=== PATIENT | female | born 1990 ===

== ENCOUNTER 2017-11-17 18:38 | Outpatient (CLI) | payer MEDICAID ==
[~2017-11-17] VITALS: Ht 165.1 cm; Wt 72.6 kg
[~2017-11-17 18:38] MED LIST: FOLI0.4T56 PO; OMEG-5 PO; PREN1TAB15 PO
[2017-11-17] MEDS ORDERED: CALC-515 PO (19:03)
[2017-11-17] MEDS ORDERED: ACET-1966 PO (19:03)
[2017-11-17 19:04] VITALS: BP 107/57; Ht 165.1 cm; Wt 72.6 kg
[2017-11-17 19:53] LABS: PLATELET COUNT, AUTOMATED 145 K/uL (150-450)
--- NOTE | 2017-11-17 19:53 | History & Physical ---
History of Present Illness Age of Patient: 27 : 3 Para or TPAL: 2001 EDC per LMP: Dec 28, 2017 EDC per U/S: Dec 28, 2018 Estimated Gestational Age: 34.1 Chief Complaint abdominal pain after fall on buttocks History of Present Illness HPI: 27yo at 34.1, BRIANA 12/28/17, who presents for evaluation of abdominal pain after fall at 10am this morning. Patient reports she tripped backward over her dog and fell backward onto her buttocks. She denies intimate partner violence. She reports normal movement, no LOF or PVB. She reports dull pain over her entire abdomen. Pain started immediately, and lasted until about noon. She reports it felt like she had pulled a muscle. She reports that the pain resolved completely, but then returned this evening about 5 and has not resolved. Of note, she reports that she has been followed with weekly NSTs for IUGR, EFW 7 % and stable, repeat sonogram for growth in 2 weeks scheduled. Also has had bleeding throughout her , thought to be likely abruption as no other source of bleeding identified. She reports she is stable from that standpoint. She states she has had contractions with this , no labor, no medications. History Group B Strep Screen: Unknown Obstetrical History: FT x 2, pt reports contractions with both pregnancies but term deliveries first trimester spAB Past Medical History: mild intermittent asthma Allergies: Coded Allergies: No Known Drug Allergies (Unverified , 11/17/17) Social History: , denies intimate partner violence, has one step child. Med Rec Home Meds Reported Medications Acetaminophen (TYLENOL) 325 Mg Tablet, 325 MG PO, TAB 11/17/17 Calcium Carbonate (TUMS) 200 Mg Tab.chew, 200 MG PO, TAB.CHEW 11/17/17 Vit #108/Iron/Fa ( ONE TABLET) 1 Each Tablet, 1 EACH PO DAILY 07/07/17 Discontinued Reported Medications [place]-3/Dha/Epa/Fish Oil (Fish Oil 500 mg Softgel) 60 Mg-90 Mg-500 Mg Capsule, 500 MG PO DAILY 07/07/17 Review of Systems Constitutional: No Fever, No Weight Loss, No Weight Gain, No Chills, No Night Sweats, No Other Eyes: No Vision Change, No Loss of Vision, No Photophobia, No Other ENT: No Hearing Loss, No Sinus Congestion, No Sore Throat, No Ear Ache, No Tinnitus, No Other Cardiovascular: No Chest Pain, No Palpitations, No Orthostatic Hypotension, No Other Respiratory: No Shortness of Breath, No Cough, No Wheezing, No Other Gastrointestinal: Abdominal Pain Genitourinary: No Dysuria, No Hematuria, No Urinary Incontinence, No Other Musculoskeletal: No Pain, No Sprain, No Strain, No Impaired Mobility, No Other Psychiatric: No Depression, No Anxiety, No Other Exam General Exam Vital Signs Vital Signs Date Time Temp Pulse Resp B/P (MAP) Pulse Ox O2 Delivery O2 Flow Rate FiO2 11/17/17 19:04 98.2 102 18 107/57 (74) 95 Room Air General Apperance: Alert/Awake/No Acute Distress Neuro: No Gross deficits Cardiovascular: Regular Rate and Rhythm Respiratory: Clear to Auscultation Abdomen: Gravid - Non-Tender (soft, non-distended, general abdominal tenderness , not fundal tenderness) : Normal Extremities: No Cyanosis,Clubbing or Edema Integumentary: Skin Intact without Lesions or Rash Psychological: Alert & Oriented X3, Appropriate Mood & Affect Uterine Contractions(Q min): 0 Uterine Contraction Strength: Mild UC Resting Tone: Soft Fetus Feeling Movement?: Yes Heart Tones: 120 Heart Tone Variabilty: Moderate FHT Accelerations: 15X15 FHT Decelerations: None FHT Category: I Medical Decision Making Pre-Admit Course Medical Record Review: No (not available) VTE Prophylasis: Adult Deep Vein Thrombosis/Pulmonary: No Pharmacological Contraindicati: Pt at Low Risk for VTE Mechanical Contraindications: Pt at Low Risk for VTE Assessment and Plan Problems: (1) Abdominal pain affecting , antepartum Status: Acute Assessment & Plan: 27yo at 34.1 with known IUGR at 7%ile, and known suspected chronic abruption, now with abdominal pain s/p fall. testing reassuring on NST, no contractile activity, no uterine tenderness. However, recommend ultrasound to evaluate placenta, PETRA, as well as CBC, fibrinogen , and K-B. Rationale for additional testing discussed with patient and all questions answered. CEFM/TOCO monitoring for now. (2) Status post fall KAM KIM MD Nov 17, 2017 19:52
--- NOTE | 2017-11-17 21:19 | RADIOLOGY IMAGING REPORT ---
FACILITY: [facility] - [place] PATIENT NAME: Rand Story : 1990 MR: [id number] V: [id number] EXAM DATE: ORDERING PHYSICIAN: KAM KIM TECHNOLOGIST: Location: [facility] Patient: Rand Story : 1990 Visit/Account:[id number] Date of Sevice: 11/17/2017 OB LIMITED HISTORY: Patient fell on her back. Pain. COMPARISON STUDIES: None. FINDINGS: Intrauterine gestations: One. presentation: Cephalic. heart rate: Regular at 142-149 bpm. Amniotic fluid index: 18.4 cm. Largest amniotic fluid pocket 6.2 cm. Placenta: Anterior without previa. Placental cord insertion is normal. The campaign management specialist was worried ab out a small hypoechoic area visible only in the transverse plane deep to the right side of the placen ta (images 26 through 29). It measures 1.3 x 0.8 cm. The appearance favors that it is a portion of th e uterine wall. A tiny chronic placental abruption is felt to be much less likely. No ultrasound evid ence for acute abruption. Uterus: Gravid, otherwise normal. Maternal adnexa: Unremarkable. Cervix: Not visible due to shadowing from the head. Gestational Parameters: BPD: 8.7 cm 35 weeks/ 1 days HC: 32.4 cm 36 weeks/ 5 days AC: 28.2 cm 32 weeks/ 2 days FL: 6.0 cm 31 weeks/ 1 days Average ultrasound age (AUA): 33 weeks 6 days Estimated gestational age by LMP of 03/23/2017: 34 weeks 1 days, corresponding to BRIANA 12/28/2017. Estimated weight (EFW): 1994 grams +/- 291 grams EFW based on LMP: 9 th percentile Anatomic Survey: Dedicated anatomic survey was performed due to the indication of trauma. Visible intracranial structu res are normal. IMPRESSION: 1. Single live intrauterine gestation; estimated ultrasound age 33 weeks 6 days, corresponding to BRIANA 12/30/2017, 2 days BRIANA based on LMP. 2. Estimated weight is at the 9th percentile based on LMP. 3. No ultrasound evidence for placental abruption. These findings were discussed by phone with KAM KIM on 11/17/2017 9:14 PM. Report Dictated By: Denita Doll at 11/17/2017 8:50 PM Report E-Signed By: Denita Doll at 11/17/2017 9:16 PM [id number]
[2017-11-17] MEDS ORDERED: CYCLOBENZAPRINE HCL 10 MG TH PO ONE (21:35)
--- NOTE | 2017-11-17 21:40 | OB/GYN Progress Note ---
OB Subjective Progress Notes Subjective Patient reports feels pain improved with ice pack to low back and low abdomen. No vaginal bleeding, no contractions. Good movement. GI: NEG Nausea, NEG Vomiting, NEG Flatus, NEG Bowel Movement : Voiding Well Pain: Mild, Not Requiring Pain Meds Eyes: No Visual Disturbances OB Objective Physical Exam Vital Signs Date Time Temp Pulse Resp B/P (MAP) Pulse Ox O2 Delivery O2 Flow Rate FiO2 11/17/17 19:04 98.2 102 18 107/57 (74) 95 Room Air General Appearance: Alert/Awake/No Acute Distress Neurological: No Gross deficits Eyes: Normal Extraocular Movement & Vison Respiratory: Clear to Auscultation Abdomen: Soft, Non-Tender, Non-Distended (fundus non-tender, some diffuse tenderness) Extremities: No Cyanosis,Clubbing or Edema Integumentary: Skin Intact without Lesions or Rash Psychological: Alert & Oriented X3, Appropriate Mood & Affect Result Diagram: 11/17/17 1940 fibrinogen 325 Imaging OB ultrasound: EFW 1994g, 9%ile PETRA normal at 18.4 anterior fundal placenta, no e/o acute abruption Assessment and Plan Problems: (1) Abdominal pain affecting , antepartum Status: Acute Assessment & Plan: 27yo at 34.1 with known IUGR at 7%ile, and known suspected chronic abruption, now with abdominal pain s/p fall. testing remains reassuring on NST, no contractile activity, no uterine tenderness. CBC overall good, platelets low but stable at 145 (152 12/12). Fibrinogen 325. Ultrasound shows stable growth, reassuring PETRA 18, no e/o acute abruption. Pain improved with ice packs to area. Will allow discharge home with trial of cyclobenzaprine, as mechanism of injury was falling backward with an acute pulling sensation. Continue intermittent ice to area. Strict instructions to patient to call us with contractions or any vaginal bleeding or decreased movement. (2) Status post fall Status: Acute KAM KIM MD Nov 17, 2017 21:40
[2017-11-17] MEDS ORDERED: CYCL10TA29 PO (21:42)
--- NOTE | 2017-11-17 21:43 | OB/GYN Discharge Summary ---
Discharge Summary Reason for Hosp/Final Diag: (1) Abdominal pain affecting , antepartum Status: Acute Hospital Course & Plan: 27yo at 34.1 with known IUGR at 7%ile, and known suspected chronic abruption, now with abdominal pain s/p fall. testing remains reassuring on NST, no contractile activity, no uterine tenderness. CBC overall good, platelets low but stable at 145 (152 12/12). Fibrinogen 325. Ultrasound shows stable growth, reassuring PETRA 18, no e/ o acute abruption. Pain improved with ice packs to area. Will allow discharge home with trial of cyclobenzaprine, as mechanism of injury was falling backward with an acute pulling sensation. Continue intermittent ice to area. Strict instructions to patient to call us with contractions or any vaginal bleeding or decreased movement. (2) Status post fall Status: Acute Lates Vital Signs Vital Signs Date Time Temp Pulse Resp B/P (MAP) Pulse Ox O2 Delivery O2 Flow Rate FiO2 11/17/17 19:04 98.2 102 18 107/57 (74) 95 Room Air Weight (Pounds): 160 Result Diagram: 11/17/171939 Condition: Improved Discharge: Home Home Meds Active Scripts Cyclobenzaprine Hcl (CYCLOBENZAPRINE HCL) 10 Mg Tablet, 1 EACH PO Q8H Y for MUSCLE SPASMS MDD 30 for 5 Days, #15 TAB Prov:KAM KIM MD 11/17/17 Reported Medications Acetaminophen (TYLENOL) 325 Mg Tablet, 325 MG PO, TAB 11/17/17 Calcium Carbonate (TUMS) 200 Mg Tab.chew, 200 MG PO, TAB.CHEW 11/17/17 Vit #108/Iron/Fa ( ONE TABLET) 1 Each Tablet, 1 EACH PO DAILY 07/07/17 Discontinued Reported Medications [place]-3/Dha/Epa/Fish Oil (Fish Oil 500 mg Softgel) 60 Mg-90 Mg-500 Mg Capsule, 500 MG PO DAILY 07/07/17 [facility]: [facility] [phone] Follow up in: 3-4 days Discharge Diet: As Tolerates Discharge Activity: As Tolerates KAM KIM MD Nov 17, 2017 21:43
== END 2017-11-17 22:00 | disposition home or self-care (01) ==
LOC: OB 18:38 → UNDOADMOB 18:38 → L&D 18:38 → OB 18:38 → UNDODISOB 21:42 → L&D 22:00 → EDSTATUS 11-21 15:44
PROVIDERS: ATTEND Obstetrics & Gynecology
DX: O26.893 Other specified pregnancy related conditions, third trimester (principal); Z3A.34 34 weeks gestation of pregnancy; W01.0XXA Fall on same level from slipping, tripping and stumbling without subsequent striking against object, initial encounter
CPT/HCPCS: 36415; 76815; 85025; 85384; 85460; 86850; 86900; 86901; G0463; 99213; G0378; G0379

== ENCOUNTER 2017-12-01 22:25 | Inpatient (IN) | payer MEDICAID ==
[~2017-12-01] VITALS: Ht 165.1 cm; Wt 77.1 kg
[~2017-12-01 22:25] MED LIST changes: +ACET-1966 PO; +CALC-515 PO; +CYCL10TA29 PO
[2018-01-05] MEDS ORDERED: OXYTOCIN 30 UNIT/D5LR 500 ML 500 ML ONE ×2 (05:53→14:20)
[2018-01-05] MEDS ORDERED: LR(*) 1000 ML BAG 1,000 ML ONE (05:53)
[2018-01-05] MEDS ORDERED: ceFAZolin(*) 2GM/D5W 50ML 50 ML IVPB PRN (06:24)
[2018-01-05] MEDS ORDERED: FAMOTIDINE(*) 20MG/50ML PREMIX 50 ML IVPB PRN (06:24)
[2018-01-05] MEDS ORDERED: OXYTOCIN 30 UNIT/D5LR 500 ML 500 ML IV PRN ×3 (06:24→16:34)
[2018-01-05] MEDS ORDERED: ACETAMINOPHEN 500 MG TAB PO PRN (06:25)
[2018-01-05] MEDS ORDERED: cefOXitin/DEX(*) 2GM/50ML PREM 50 ML IVPB PRN (06:25)
[2018-01-05] MEDS ORDERED: METOCLOPRAMIDE 10 MG/2 ML SDV IVP PRN (06:25)
[2018-01-05] MEDS ORDERED: LIDOCAINE 1% LOCAL 300 MG/30ML INJ PRN (06:25)
[2018-01-05] MEDS ORDERED: ONDANSETRON 4 MG/2 ML VIAL IVP PRN (06:25)
[2018-01-05] MEDS ORDERED: TERBUTALINE SULF 1 MG/ML VIAL SUBQ PRN (06:25)
[2018-01-05] MEDS ORDERED: MISOPROSTOL 25 MCG CAP PV PRN (06:25)
[2018-01-05 06:30] VITALS: BP 111/69; Ht 165.1 cm; Wt 77.1 kg
[2018-01-05] MEDS ORDERED: ALB6.7R INH (06:40)
[2018-01-05 06:43] LABS: PLATELET COUNT, AUTOMATED 157 K/uL (150-450)
[2018-01-05] MEDS: LR(*) 1000 ML BAG 1,000 ML IV PRN ×3 (06:45→13:00)
[2018-01-05] MEDS ORDERED: OXYMETAZOLINE SPRAY 15 ML BTL ENA PRN (08:40)
[2018-01-05] MEDS ORDERED: ALBUTEROL SULFATE 90 MCG/ACT 8.5 GM HNH INH PRN (08:40)
--- NOTE | 2018-01-05 08:48 | History & Physical ---
History of Present Illness Age of Patient: 24 : 4 Para or TPAL: 2 EDC per LMP: Dec 28, 2017 EDC per U/S: Dec 30, 2017 Estimated Gestational Age: 41.1 Chief Complaint Induction of labor History of Present Illness Pt is a 27 y/o @ 41-1/7 weeks gestation by lmp c/w early sonogram who presents to L&D for a scheduled IOL. Pt reports good movement. No vaginal bleeding. No loss of amniotic fluid. No headache, RUQ, or visual changes. History Patient's Blood Type: O Positive Rubella Status: Immune Group B Strep Screen: Negative Obstetrical History: X1 SAB X 1 Past Medical History: Asthma: Inhaler (albuterol)prn Allergies: Coded Allergies: No Known Drug Allergies (Unverified , 11/17/17) Social History: , denies intimate partner violence, has one step child. Med Rec Home Meds Reported Medications Albuterol Sulfate (PROVENTIL HFA) 6.7 Gm Inh, 2 PUFF INH Q4-6H, INH 01/05/18 Calcium Carbonate (TUMS) 200 Mg Tab.chew, 200 MG PO, TAB.CHEW 11/17/17 Vit #108/Iron/Fa ( ONE TABLET) 1 Each Tablet, 1 EACH PO DAILY 07/07/17 Discontinued Reported Medications Acetaminophen (TYLENOL) 325 Mg Tablet, 325 MG PO, TAB 11/17/17 Review of Systems All Systems Reviewed/Normal: Yes, Except as Noted Constitutional: No Fever, No Weight Loss, No Weight Gain, No Chills, No Night Sweats, No Other Neurological: No Syncope, No Confusion, No Weakness, No Dizziness, No Slurred Speech, No Other Eyes: No Vision Change, No Loss of Vision, No Photophobia, No Other ENT: No Hearing Loss, No Sinus Congestion, No Sore Throat, No Ear Ache, No Tinnitus, No Other Cardiovascular: No Chest Pain, No Palpitations, No Orthostatic Hypotension, No Other Respiratory: No Shortness of Breath, No Cough, No Wheezing, No Other Gastrointestinal: No Nausea, No Vomiting, No Diarrhea, No Dysphagia, No Constipation, No Early Satiety, No Hematemesis, No Hematochezia, No Melena, No Abdominal Pain, No Other Genitourinary: No Dysuria, No Hematuria, No Urinary Incontinence, No Other Musculoskeletal: No Pain, No Sprain, No Strain, No Impaired Mobility, No Other Psychiatric: No Depression, No Anxiety, No Other Exam General Exam Vital Signs Vital Signs Date Time Temp Pulse Resp B/P (MAP) Pulse Ox O2 Delivery O2 Flow Rate FiO2 01/05/18 06:30 98.3 87 18 111/69 (83) 94 Room Air General Apperance: Alert/Awake/No Acute Distress Neuro: No Gross deficits Eyes: PERRLA ENT: Normal Cardiovascular: Regular Rate and Rhythm Respiratory: No Respiratory Distress, Clear to Auscultation Abdomen: Soft, Non-Tender, Non-Distended, Gravid - Non-Tender : Normal Musculoskeletal: No Weakness/Pain Psychological: Alert & Oriented X3, Appropriate Mood & Affect Vaginal Discharge/Fluid?: Clear Fluid (with amniotomy) Cervical Dialation: 3 Cervical Effacement (%): 80 Cervical Consistency: Soft Cervical Position: Anterior Station: -2 Presentation: Vertex Uterine Contractions(Q min): 3 Uterine Contraction Strength: Moderate UC Resting Tone: Soft Fetus Feeling Movement?: Yes Estimated Weight(grams): 3000 Heart Tones: 120 Heart Tone Variabilty: Moderate FHT Accelerations: 15X15 FHT Decelerations: None FHT Category: I Medical Decision Making Data Points Result Diagram: 01/05/18 0600 Pre-Admit Course Medical Record Review: Yes VTE Prophylasis: Adult Deep Vein Thrombosis/Pulmonary: No Assessment and 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 S/P amniotomy. Pt declines need for epidural and desires to use IV pain medications. Expect . JOAO BAUER DO Jan 05, 2018 08:48
[2018-01-05] MEDS ORDERED: METHYLERGONOVINE MAL 0.2MG/ML IM PRN (10:05)
[2018-01-05] MEDS: fentaNYL CITR 100 MCG/2 ML AMP IVP PRN ×2 (11:20→12:33)
[2018-01-05] MEDS ORDERED: EPHEDRINE SULFATE/NS/PF 50 MG/10 ML SYRINGE IVP PRN (12:15)
[2018-01-05] MEDS ORDERED: LIDOCAINE/PF 2% 200MG/10ML AMP 200 MG/10 ML AMPUL EPI PRN (12:15)
[2018-01-05] MEDS ORDERED: LIDO/EPI 2% MPF 1:200,000 20ML EPI PRN (12:15)
[2018-01-05] MEDS ORDERED: BUPIVACAINE 0.25% MPF INJ EPI PRN (12:15)
[2018-01-05] MEDS ORDERED: fentaNYL CITR 100 MCG/2 ML AMP IT PRN (12:15)
[2018-01-05] MEDS ORDERED: BUPIVACAINE 0.5% INJ 30ML VIAL EPI PRN (12:15)
[2018-01-05] MEDS ORDERED: FENTANYL/ROPIVACAINE 100 ML BAG EPI PRN (12:15)
[2018-01-05] MEDS ORDERED: EPIDURAL KEYS XX PRN (12:15)
--- NOTE | 2018-01-05 13:45 | Anesthesia OB Pre-Anes Eval ---
History of Present Illness Anesthesia Start Date: Jan 05, 2018 Anesthesia Start Time: 12:35 OB Anesthesia Diagnosis: induction - elective EDC: Dec 28, 2017 : 4 Para: 2 Vital Signs: Vital Signs 01/05/18 06:30 Temp 98.3 Pulse 87 Resp 18 B/P (MAP) 111/69 (83) Pulse Ox 94 O2 Delivery Room Air Pain Ratin Result Diagram: 01/05/18 0600 Height (Inches): 65.00 Weight (Pounds): 170 BMI Calculated: 28.29 Past Medical History Medical History: asthma Surgical History: other Previous Anesthesia: general, epidural Attended Childbirth Classes?: No Hx Anesthesia Reactions: No Hx Family Anesthesia Reaction: No Current Medications: pain medication Home Meds Reported Medications Albuterol Sulfate (PROVENTIL HFA) 6.7 Gm Inh, 2 PUFF INH Q4-6H, INH 01/05/18 Calcium Carbonate (TUMS) 200 Mg Tab.chew, 200 MG PO, TAB.CHEW 11/17/17 Vit #108/Iron/Fa ( ONE TABLET) 1 Each Tablet, 1 EACH PO DAILY 07/07/17 Discontinued Reported Medications Acetaminophen (TYLENOL) 325 Mg Tablet, 325 MG PO, TAB 11/17/17 Allergies: Coded Allergies: No Known Drug Allergies (Unverified , 11/17/17) Anesthesia OB ROS Neurological: No migraines/headaches, No seizures, No neuropathy, No other ENT: Denies Tooth caps, Denies Loose teeth, Denies Chipped teeth, Denies Dentures, Denies Bridges, Denies Retainers, Denies Veneers, Denies Implants, Denies Tongue ring, Denies Other Airway Class: ll Cardiovascular ROS: No edema, No arrhythmia, No other ROS: No Herpes, No STD(s), No Liver Disease, No Renal Disease, No Other Endocrine ROS: No diabetes, No gestational diabetes, No thyroid disorder, No other Musculoskeletal ROS: No low back pain, No low back injury, No scoliosis, No other ASA Classification: 2 Assessment and Plan Anesthesia Plan: CSE Anesthesia Stop Day: Jan 05, 2018 Anesthesia Stop Time: 14:00 SHAKIR LANDRY CRNA Jan 05, 2018 13:45
--- NOTE | 2018-01-05 13:47 | Procedure Note ---
Anesthetic Placement Note Anesthesia Plan: CSE Anesthesia Technique: Patient Sitting Interspace: L 3-4 Local Anesthetic: 1% Lidocaine Amount Local - cc's: 3 Anesthesia Needle: 17g Touhy/Schliff Anesthesia Attempts: 1 Loss of Resistance: Normal Saline Depth of ASHLEE (cm): 5 Epidural Needle Placement: No CSF, No Blood, No Parasthesia Intrathecal Needle: 27 Gauge Pencan Cerebral Spinal Fluid: Yes, Clear Catheter Insertion (cm): 9 Catheter Type: Chand - Spring Wound Epidural Dressing: Tegaderm, Tape Anesthesia Tray: Lot Number ([id number]), Expiration Date (07/19), Reference Number ([id number]) Anesthesia Medications: Intrathecal Dose: mcg Fentanyl (10), mg Spinal Bupivicaine (2.5) Epidural Test Dose: 1.5 Lido/Epi (1:200,000), Dose - mL (3), Time (1250), Negative Epidural Infusion: 0.2% Ropivicaine, With Fentanyl 2mcg/ml, Start Time: (1303) Epidural Pump Setting: Bolus Dose - mL (6), Lockout - Minutes (20), Maintenance Rate - mL/hr (6), Maximum per Hour - mL (24) Complications: None SHAKIR LANDRY CRNA Jan 05, 2018 13:47
[2018-01-05] MEDS ORDERED: ACETAMINOPHEN 325 MG TAB PO PRN (14:00)
[2018-01-05] MEDS ORDERED: LANOLIN OINT 7 GM TUBE TP PRN (14:00)
[2018-01-05] MEDS ORDERED: HYDROCORTISONE 2.5% CR 30GM TB PR PRN (14:00)
[2018-01-05] MEDS ORDERED: MAGNESIUM HYDROXIDE* 30ML UDCP PO PRN (14:00)
[2018-01-05] MEDS ORDERED: BENZOCAINE 20% 60 ML BTL TP PRN (14:00)
[2018-01-05] MEDS ORDERED: GLYCERIN/WITCH HAZEL LEAF 1 PK TP PRN (14:00)
[2018-01-05 14:59] VITALS: BP 102/59
[2018-01-05 15:37] VITALS: BP 111/62
[2018-01-05 16:27] VITALS: BP 111/63
[2018-01-05] MEDS: IBUPROFEN 800 MG TAB PO SCH ×2 (16:43→23:12)
--- NOTE | 2018-01-05 17:25 | OB Delivery Note ---
Delivery Note Vaginal Delivery Type: Spont. Vaginal Delivery Delivery Date: Jan 05, 2018 Delivery Time: 13:41 Estimated Gestational Age(wks): 41.1 Length of Labor Stage I (hrs): 5.5 Length of Labor Stage II (hrs): 0.2 Labor Stage III (minutes): 5 Delivery Anesthesia: Epidural Infant Sex: Male Weight (gms): 3312 (7#4.8oz) [place] Apgars: 1 Minute (9), 5 Minute (9) Estimated Blood Loss: 400 [employer] Estimator in Attendence: JOAO Kruger DO Jan 05, 2018 17:25
--- NOTE | 2018-01-05 17:53 | DELIVERY NOTE ---
DELIVERY DATE: January 05, 2018 SURGEON: Leif Hope DO ANESTHESIA: Epidural. PREOPERATIVE DIAGNOSES 1. A 27-year-old 4 para 2 at 41-1/7 weeks gestation. 2. Induction of labor. POSTOPERATIVE DIAGNOSES 1. A 27-year-old 4 para 2 at 41-1/7 weeks gestation. 2. Induction of labor. 3. Delivered. PROCEDURE Spontaneous vaginal delivery with no laceration repair. FINDINGS Live born male at 1341 hours, Apgars of 9 and 9, weighing 3312 g, 7 pounds 4.8 ounces. Three-vessel cord, intact placenta over an intact perineum. ESTIMATED BLOOD LOSS 400 mL PATHOLOGY None. COMPLICATIONS None known. CONDITION Stable times two. Mother and remained in the LDRP. COUNTS Correct times two for all needles, laps, sponges and instruments. LABOR SUMMARY Patient is a 27-year-old 4, para 2 at 41-1/7 weeks gestation by LMP consistent with an early sonogram. Patient was admitted to Labor and Delivery for induction of labor. She started with a cervix at 3 cm. She was given oxytocin for induction of labor. She underwent amniotomy with clear amniotic fluid. She made slow progress initially with the oxytocin, but eventually got to 5 cm. Did request an epidural for pain control. After epidural patient began to have some variable decelerations and quickly made it to complete and + 2 station with the urge to push. At this time the delivery time was called and assembled. DELIVERY SUMMARY Patient was placed in the dorsal lithotomy position, prepped and draped in the usual sterile manner. Upon maternal pushing the infant's head delivered in a controlled manner followed by the anterior shoulder with gentle downward motion , the posterior shoulder with gentle upward motion. The remainder of the 's body delivered spontaneously. Mouth and nose were bulb suctioned. The cord was clamped times two and cut by the 's father, at which time the was allowed to remain on the maternal abdomen where nursing staff was attending to . At this point cord blood gases were obtained and the placenta delivered spontaneously with gentle contraction. Oxytocin was infused to help with uterine tone. The uterus was massaged and deemed firm. Next, upon inspection of perineum, vagina, cervix and labia it was noted that there were no lacerations present. At this point the patient was cleaned, the labor bed was reassembled and mother and infant were allowed to continue to [place]. [facility]
[2018-01-05 19:28] VITALS: BP 107/61
[2018-01-05] MEDS: DOCUSATE CALCIUM 240 MG CAP PO SCH (21:00)
[2018-01-05 23:00] VITALS: BP 107/61
[2018-01-06 04:23] VITALS: BP 121/69
[2018-01-06] MEDS: IBUPROFEN 800 MG TAB PO SCH ×2 (06:58→15:00)
--- NOTE | 2018-01-06 07:27 | OB/GYN Progress Note ---
OB Subjective Progress Notes Subjective Doing good this morning. Tolerating regular diet. Ambulatory. Voiding with out any issues. . Lochia appropriate. GI: NEG Nausea, NEG Vomiting, NEG Flatus, NEG Bowel Movement : Voiding Well, Vaginal Bleeding, Scant Pain: Mild, Tolerating PO Pain Meds Neurological: No Headache, No Other Eyes: No Visual Disturbances OB Objective Physical Exam Vital Signs Date Time Temp Pulse Resp B/P (MAP) Pulse Ox O2 Delivery O2 Flow Rate FiO2 01/06/18 06:15 15 01/06/18 04:23 97.5 90 121/69 (86) 94 Room Air General Appearance: Alert/Awake/No Acute Distress Neurological: No Gross deficits Eyes: Normal Extraocular Movement & Vison, PERRLA ENT: Normal Neck: No Masses Cardiovascular: Normal Rhythm & Peripheral Pulses, Regular Rate and Rhythm Respiratory: No Respiratory Distress, Clear to Auscultation : Normal Musculoskeletal: No Weakness/Pain Extremities: No Cyanosis,Clubbing or Edema Integumentary: Skin Intact without Lesions or Rash Psychological: Alert & Oriented X3, Appropriate Mood & Affect Result Diagram: 01/06/18 0537 Assessment and Plan COST CONTROL SPECIALIST Assessment: Stable Problems: (1) 41 weeks gestation of Status: Resolved Assessment & Plan: Doing good this morning. Tolerating regular diet. Desires to be discharged home with . JOAO BAUER DO Jan 06, 2018 07:27
[2018-01-06] MEDS ORDERED: LOR5/325 PO (07:28)
[2018-01-06] MEDS ORDERED: IBUP800T37 PO (07:28)
--- NOTE | 2018-01-06 07:31 | OB/GYN Discharge Summary ---
Discharge Summary Reason for Hosp/Final Diag: (1) 41 weeks gestation of Status: Resolved Hospital Course & Plan: Pt presented for IOL. Received oxytocin and progressed to complete. Quickly delivered with out any difficulty. Pt remained in the hospital for 1 day post . Pt desired to be discharged home on PPD #1. Lates Vital Signs Vital Signs Date Time Temp Pulse Resp B/P (MAP) Pulse Ox O2 Delivery O2 Flow Rate FiO2 01/06/18 06:15 15 01/06/18 04:23 97.5 90 121/69 (86) 94 Room Air Weight (Pounds): 170 Result Diagram: 01/06/18 0537 Condition: Improved Discharge: Home Home Meds Active Scripts Hydrocodone Bit/Acetaminophen (HYDROCODON-ACETAMINOPHEN 5-325) 1 Each Tablet, 1- 2 EACH PO Q4H Y for PAIN, #30 TAB 0 Refills Prov:JOAO BAUER DO 01/06/18 Ibuprofen (IBUPROFEN) 800 Mg Tablet, 800 MG PO Q8H@0700,1500,2300, #30 TAB 0 Refills Prov:JOAO BAUER DO 01/06/18 Reported Medications Albuterol Sulfate (PROVENTIL HFA) 6.7 Gm Inh, 2 PUFF INH Q4-6H, INH 01/05/18 Calcium Carbonate (TUMS) 200 Mg Tab.chew, 200 MG PO, TAB.CHEW 11/17/17 Vit #108/Iron/Fa ( ONE TABLET) 1 Each Tablet, 1 EACH PO DAILY 07/07/17 Discontinued Reported Medications Acetaminophen (TYLENOL) 325 Mg Tablet, 325 MG PO, TAB 11/17/17 [facility] [phone], Dr. Bauer [phone] Follow up in: 6 wks PP or PO Discharge Diet: As Tolerates, Resume Prior Admit Diet, Increase Fluid Intake Discharge Activity: As Tolerates, Pelvic Rest JOAO BAUER DO Jan 06, 2018 07:31
[2018-01-06] MEDS: DOCUSATE CALCIUM 240 MG CAP PO SCH (08:24)
[2018-01-06] MEDS: APAP/HYDROCODONE 325/5 TAB PO PRN ×2 (08:38→15:00)
[2018-01-06 08:42] VITALS: BP 117/64
--- NOTE | 2018-01-06 11:07 | Anesthesia Post Eval Note ---
Anesthesia Post Eval Note Vital Signs Date Time Temp Pulse Resp B/P (MAP) Pulse Ox O2 Delivery O2 Flow Rate FiO2 01/06/18 08:42 98.6 81 16 117/64 (81) 01/06/18 04:23 94 Room Air Pt able to participate in Eval: Yes Cardiovascular Status: Satisfactory Respiratory Status: Satisfactory Pain Managment: Satisfactory PO Nausea/Vomiting: Satisfactory Temperature Management: Satisfactory Mental Status: Satisfactory, Alert, Oriented X3 Post-Op Hydration Status: Satisfactory, Tolerating PO Well, Voiding w/o Difficulty Anesthesia Tolerance: Tolerated procedure well without apparent anesthetic complications. LP site clear, no redness or edema. Denies headache or any residual paresthesia. Vital Signs Stable, Patient comfortable and condition stable. ABDULKADIR RAI CRNA Jan 06, 2018 11:07
[2018-01-06 14:00] VITALS: BP 118/62
[2018-01-07] MEDS ORDERED: DIPHTH/TETANUS/ACEL. PERTUSSIS IM ONLY ONE (09:00)
[2018-01-07] MEDS ORDERED: MEASLES,MUMP,RUBELLA VAC 0.5ML SUBQ ONE (09:00)
[2018-01-07] MEDS ORDERED: INFLUENZA VIRUS VAC 0.5 ML SYR IM ONLY ONE (09:00)
== END 2018-01-06 17:30 | disposition home or self-care (01) | DRG 775 ==
LOC: OB 01-05 05:43
PROVIDERS: ADMIT Obstetrics & Gynecology; ATTEND Obstetrics & Gynecology
PROC: 10E0XZZ Delivery of Products of Conception, External Approach (ICD-10-PCS; principal; 2018-01-05)
PROC: 10907ZC Drainage of Amniotic Fluid, Therapeutic from Products of Conception, Via Natural or Artificial Opening (ICD-10-PCS; 2018-01-05)
PROC: 3E033VJ Introduction of Other Hormone into Peripheral Vein, Percutaneous Approach (ICD-10-PCS; 2018-01-05)
DX: O99.52 Diseases of the respiratory system complicating childbirth (principal); O76 Abnormality in fetal heart rate and rhythm complicating labor and delivery; J45.909 Unspecified asthma, uncomplicated; Z3A.41 41 weeks gestation of pregnancy; Z37.0 Single live birth
CPT/HCPCS: 36415; 85025; 85027; 86850; 86900; 86901; J2590; J3010; J7120; S0020

== ENCOUNTER 2017-12-14 13:00 | Outpatient (RCR) | payer MEDICAID, OTHER ==
[2017-09-18 10:06] VITALS: BP 116/68
[2017-09-18 10:23] LABS: PLATELET COUNT, AUTOMATED 162 K/uL (150-450)
[2017-09-18 13:38] VITALS: BP 136/87
[2017-09-22 08:40] VITALS: BP 115/72
--- NOTE | 2017-09-26 16:38 | ONCOLOGY FOLLOW UP NOTE ---
EVENT DATE: September 22, 2017 DIAGNOSES Thrombocytopenia with , most likely probably due to idiopathic thrombocytopenic purpura. CHIEF COMPLAINT Patient is here today for followup of her thrombocytopenia with . HEMATOLOGY HISTORY Patient is a 27-year-old female who is currently in her 15th week of gestation. Patient moved from [place] to [place], [place], and she got and [facility], where she did have blood count on June 30, 2017, which showed normal white count of 5440, normal hemoglobin at 14.6, and hematocrit at 41.7%, but her platelet count was 84,000. Repeat CBC for the platelets done on July 03, 2017 showed platelet count of 107,000. Repeat CBC showed white count 6.8, hemoglobin 13.8, hematocrit 39.7 and the platelet count 161,000. Haptoglobin was normal at 52, total bilirubin was normal at 1.2, LDH was normal at 405, ruling out the possibility of hemolytic anemia. B12 level was normal at 470 and the methylmalonic acid assay was normal at 0.16. Serum folate was more than 22.3 and red cell folate was normal at 1241. Platelet associated antibodies came back strongly positive for platelet antibodies direct IgG. HISTORY OF PRESENT ILLNESS The patient is here today for followup of her thrombocytopenia with . She is doing fine currently. She has some nausea and vomiting related to her . She has also some cough with expectoration and shortness of breath. She is weak, tired and fatigued, but generally, she is stable. PAST MEDICAL HISTORY Insignificant except for premature uterine contractions with her last 9 months ago. PAST SURGICAL HISTORY 1. D&C for a miscarriage. 2. [place] tooth extraction. FAMILY HISTORY Mother had breast cancer, maternal grandmother had stomach and lung cancer. SOCIAL HISTORY Patient is with 2 biological children. She is a homemaker currently. She quit working after she got . She smoked for 5 years around half a pack a day, but she quit 4 years ago. Denies any abuse of alcohol or illicit drugs. CURRENT MEDICATIONS 1. vitamins. 2. Folic acid. 3. Fish oil. ALLERGIES No known drug allergies. REVIEW OF SYSTEMS CONSTITUTIONAL: She has some chills but because of the cold weather. HEENT: Ears: No tinnitus or hearing problem. Nose: She has epistaxis. Throat: No sore throat or mouth ulcers. Eyes: No diplopia or visual changes. RESPIRATORY: She has cough with shortness of breath. CARDIOVASCULAR: No chest pain, orthopnea, or paroxysmal nocturnal dyspnea (PND) . No edema. No palpitations. GASTROINTESTINAL: She has occasional nausea and vomiting. GENITOURINARY: No hematuria or dysuria. MUSCULOSKELETAL: No pain in the muscles, joints or bones. NEUROLOGICAL: She has occasional headache. HEMATOLOGIC/LYMPHATIC: She is weak, tired, and fatigued. SKIN: No skin rash or lumps. PSYCHIATRIC: No anxiety or depression. PHYSICAL EXAMINATION GENERAL: Looks stable. Well-developed, well-nourished, and in no acute distress. VITAL SIGNS: Blood pressure 115/72, pulse 112 per minute, respirations 16 per minute, temperature 96.6, pulse ox 92% on room air. HEENT: Head: Atraumatic. No sinus tenderness to palpation. Eyes: No icterus or conjunctivitis. Mouth and throat: No oral thrush or mucositis. NECK: Supple. No cervical or supraclavicular lymphadenopathy. LUNGS: Clear to auscultation and percussion bilaterally. HEART: Regular rate and rhythm. No gallops, murmurs, clicks or rubs. ABDOMEN: Soft and lax. No tenderness. No hepatosplenomegaly. No masses. EXTREMITIES: No cyanosis, clubbing or edema. LYMPHATICS: No peripheral lymphadenopathy. NEUROLOGICAL: Conscious, alert and oriented times three. No focal motor or sensory deficits. PSYCHIATRIC: Mood and affect appear normal. SKIN: No skin rash, bruise or purpuric eruption. DIAGNOSTIC DATA CBC showed white count 8.4, hemoglobin 13, hematocrit 37.8, platelets 162,000. ASSESSMENT Thrombocytopenia with , most probably due to idiopathic thrombocytopenic purpura given that her thrombocytopenia occurs during her late first trimester or the beginning of the second trimester. Platelet associated antibodies were strongly positive for platelet antibodies, direct IgG, B12, folate, red cell folate, methylmalonic acid assay, all came back within the normal range. There is no evidence of hemolysis by normal haptoglobin. Her LDH , direct bilirubin all came back within the normal range ruling out the possibility of microangiopathy with . Her current platelet count is 162,000, which is normal and stable, and no further workup or intervention is required. Will continue to monitor her CBC every month and I will see her again in 3 months with CBC at that time. PLAN 1. Continue followup. 2. CBC to be checked monthly. 3. Patient to return in 3 months with CBC. 4. The patient to contact us for any new concerns or complaints. JANNA
[2017-10-16 09:03] LABS: PLATELET COUNT, AUTOMATED 181 K/uL (150-450)
[2017-11-13 09:02] VITALS: BP 110/68
[2017-11-13 09:12] LABS: PLATELET COUNT, AUTOMATED 152 K/uL (150-450)
[2017-11-17 19:04] VITALS: Ht 165.1 cm; Wt 75.8 kg
[2017-12-11 09:33] LABS: PLATELET COUNT, AUTOMATED 168 K/uL (150-450)
[2017-12-11 09:56] VITALS: BP 118/76
[~2017-12-14] VITALS: Ht 165.1 cm; Wt 75.8 kg
[2017-12-14 13:04] VITALS: BP 117/74
--- NOTE | 2017-12-14 18:20 | ONCOLOGY FOLLOW UP NOTE ---
EVENT DATE: December 14, 2017 DIAGNOSES Thrombocytopenia with , most likely probably due to idiopathic thrombocytopenic purpura. CHIEF COMPLAINT Patient is here today for followup of her thrombocytopenia with . HEMATOLOGY HISTORY Patient is a 27-year-old female who is currently in her 15th week of gestation. Patient moved from [place] to [place], [place], and she got and she [facility], where she did have blood count on June 30, 2017, which showed normal white count of 5440, normal hemoglobin at 14.6, and hematocrit at 41.7%, but her platelet count was 84,000. Repeat CBC for the platelets done on July 03, 2017 showed platelet count of 107,000. Repeat CBC showed white count 6.8, hemoglobin 13.8, hematocrit 39.7 and the platelet count 161,000. Haptoglobin was normal at 52, total bilirubin was normal at 1.2, LDH was normal at 405, ruling out the possibility of hemolytic anemia. B12 level was normal at 470 and the methylmalonic acid assay was normal at 0.16. Serum folate was more than 22.3 and red cell folate was normal at 1241. Platelet associated antibodies came back strongly positive for platelet antibodies direct IgG. HISTORY OF PRESENT ILLNESS The patient is here today for followup of her thrombocytopenia with . She is complaining of some runny nose and episodic bloody nose. She has some cough and shortness of breath. She has also nausea. She has some pain in her hips. She has occasional headache, and she is weak, tired and fatigued. As per patient, she has two weeks to deliver her baby. PAST MEDICAL HISTORY Insignificant except for premature uterine contractions with her last 9 months ago. PAST SURGICAL HISTORY 1. D&C for a miscarriage. 2. [place] tooth extraction. FAMILY HISTORY Mother had breast cancer, maternal grandmother had stomach and lung cancer. SOCIAL HISTORY Patient is with 2 biological children. She is a homemaker currently. She quit working after she got . She smoked for 5 years around half a pack a day, but she quit 4 years ago. Denies any abuse of alcohol or illicit drugs. CURRENT MEDICATIONS 1. vitamins. 2. Folic acid. 3. Fish oil. ALLERGIES No known drug allergies. REVIEW OF SYSTEMS CONSTITUTIONAL: She has some chills but because of the cold weather. HEENT: Ears: No tinnitus or hearing problem. Nose: She has nasal discharge and epistaxis. Throat: No sore throat or mouth ulcers. Eyes: No diplopia or visual changes. RESPIRATORY: She has cough and shortness of breath. CARDIOVASCULAR: No chest pain, orthopnea, or paroxysmal nocturnal dyspnea (PND) . No edema. No palpitations. GASTROINTESTINAL: She has nausea. No vomiting. GENITOURINARY: No hematuria or dysuria. MUSCULOSKELETAL: She has bilateral pain in the hips. No pain in the muscles, joints or bones. NEUROLOGICAL: She has occasional headache. HEMATOLOGIC/LYMPHATIC: She is weak, tired, and fatigued. SKIN: No skin rash or lumps. PSYCHIATRIC: No anxiety or depression. PHYSICAL EXAMINATION GENERAL: Looks stable. Well-developed, well-nourished, and in no acute distress. VITAL SIGNS: Blood pressure 117/74, pulse 101 per minute, respirations 16 per minute, temperature 96.8, pulse ox 97% on room air. HEENT: Head: Atraumatic. No sinus tenderness to palpation. Eyes: No icterus or conjunctivitis. Mouth and throat: No oral thrush or mucositis. NECK: Supple. No cervical or supraclavicular lymphadenopathy. LUNGS: Clear to auscultation and percussion bilaterally. HEART: Regular rate and rhythm. No gallops, murmurs, clicks or rubs. ABDOMEN: Distended because of her . Soft and lax. No tenderness. No hepatosplenomegaly. No masses. EXTREMITIES: No cyanosis, clubbing or edema. LYMPHATICS: No peripheral lymphadenopathy. NEUROLOGICAL: Conscious, alert and oriented times three. No focal motor or sensory deficits. PSYCHIATRIC: Mood and affect appear normal. SKIN: No skin rash, bruise or purpuric eruption. DIAGNOSTIC DATA CBC showed white count 7.8, hemoglobin 12.1, hematocrit 34.9, platelets 168, 000. ASSESSMENT Thrombocytopenia with , most probably due to idiopathic thrombocytopenic purpura given that her thrombocytopenia occurs during her late first trimester or the beginning of the second trimester. Platelet associated antibodies were strongly positive for platelet antibodies, direct IgG. B12, folate, red cell folate, methylmalonic acid assay, all came back within the normal range. Her platelet count currently is normal at 168,000. There is no hematological intervention required during her delivery unless her count is low. I explained that to the patient. I am planning to see her again in six months with CBC at that time and I will advise the patient to contact us if she has any excessive bruising or bleeding, or if her count is low when it will be checked prior to her delivery. PLAN 1. Continue followup. 2. Patient to return in six months with CBC. 3. The patient to contact us for any new concerns or complaints. JANNA
== END 2017-12-17 ==
LOC: ONC 13:00
PROVIDERS: ATTEND Internal Medicine Hematology
DX: O99.119 Other diseases of the blood and blood-forming organs and certain disorders involving the immune mechanism complicating pregnancy, unspecified trimester (principal); Z3A.15 15 weeks gestation of pregnancy; R11.2 Nausea with vomiting, unspecified; R05 Cough; R06.02 Shortness of breath; Z87.891 Personal history of nicotine dependence
CPT/HCPCS: 36415; 85025; 99212

== ENCOUNTER 2018-06-21 09:00 | Outpatient (RCR) | payer MEDICAID ==
[2018-01-05 06:30] VITALS: Wt 75.8 kg
[~2018-06-21 09:00] MED LIST changes: +ALB6.7R INH; +IBUP800T37 PO; +LOR5/325 PO
[2018-06-21 09:09] VITALS: BP 110/67
[2018-06-21 09:23] LABS: PLATELET COUNT, AUTOMATED 185 K/uL (150-450)
--- NOTE | 2018-06-21 17:12 | ONCOLOGY FOLLOW UP NOTE ---
EVENT DATE: June 21, 2018 DIAGNOSIS Thrombocytopenia with , most likely probably due to idiopathic thrombocytopenic purpura. CHIEF COMPLAINT Patient is here today for followup of her thrombocytopenia with . HEMATOLOGY HISTORY Patient is a 28-year-old female. Patient moved from [place] to [place], [place]. She got , and [facility] she did have blood count on June 30, 2017, which showed normal white count of 5440, normal hemoglobin at 14.6, and hematocrit at 41.7%, but her platelet count was 84,000. Repeat CBC for the platelets done on July 03, 2017, showed platelet count of 107,000. Repeat CBC showed white count 6.8, hemoglobin 13.8, hematocrit 39, and the platelet count 161,000. Haptoglobin was normal at 52, total bilirubin was normal at 1.2, LDH was normal at 405, ruling out the possibility of hemolytic anemia. B12 level was normal at 470, and the methylmalonic acid assay was normal at 0.16. Serum folate was more than 22.3, and red cell folate was normal at 1241. Platelet-associated antibodies came back strongly positive for platelet antibodies direct IgG. HISTORY OF PRESENT ILLNESS The patient is here today for followup of her thrombocytopenia with . She is doing fine currently except for occasional nasal bleeds, and she is also weak, tired, and fatigued since her delivery and taking care of the young children. PAST MEDICAL HISTORY Insignificant except for premature uterine contractions with her last 9 months ago. PAST SURGICAL HISTORY 1. D and C for a miscarriage. 2. [place] tooth extraction. FAMILY HISTORY Mother had breast cancer. Maternal grandmother had stomach and lung cancer. SOCIAL HISTORY Patient is with two biological children. She is a homemaker currently. She quit working after she got . She smoked for five years around half a pack a day, but she quit four years ago. Denies any abuse of alcohol or illicit drugs. CURRENT MEDICATIONS 1. vitamins. 2. Folic acid. 3. Fish oil. ALLERGIES No known drug allergies. REVIEW OF SYSTEMS CONSTITUTIONAL: She has some chills, but because of the cold weather. HEENT: Ears: No tinnitus or hearing problem. Nose: Patient has occasional epistaxis. Throat: No sore throat or mouth ulcers. Eyes: No diplopia or visual changes. RESPIRATORY: She has cough and shortness of breath. CARDIOVASCULAR: No chest pain, orthopnea, or paroxysmal nocturnal dyspnea (PND). No edema. No palpitations. GASTROINTESTINAL: She has nausea. No vomiting. GENITOURINARY: No hematuria or dysuria. MUSCULOSKELETAL: She has bilateral pain in the hips. No pain in the muscles, joints or bones. NEUROLOGICAL: She has occasional headache. HEMATOLOGIC/LYMPHATIC: She is weak, tired, and fatigued. SKIN: No skin rash or lumps. PSYCHIATRIC: No anxiety or depression. PHYSICAL EXAMINATION GENERAL: Looks stable. Well developed, well nourished, and in no acute distress. VITAL SIGNS: Blood pressure 110/67, pulse 65 per minute, respirations 16 per minute, temperature 97.9, pulse ox 93% on room air. HEENT: Head: Atraumatic. No sinus tenderness to palpation. Eyes: No icterus or conjunctivitis. Mouth and Throat: No oral thrush or mucositis. NECK: Supple. No cervical or supraclavicular lymphadenopathy. LUNGS: Clear to auscultation and percussion bilaterally. HEART: Regular rate and rhythm. No gallops, murmurs, clicks, or rubs. ABDOMEN: Soft and lax. No tenderness. No hepatosplenomegaly. No masses. EXTREMITIES: No cyanosis, clubbing, or edema. LYMPHATICS: No peripheral lymphadenopathy. NEUROLOGICAL: Conscious, alert, and oriented times three. No focal motor or sensory deficits. PSYCHIATRIC: Mood and affect appear normal. SKIN: No skin rash, bruise, or purpuric eruption. DIAGNOSTIC DATA CBC showed white count 4.9, hemoglobin 14.4, hematocrit 42.5, platelets 185,000. ASSESSMENT Thrombocytopenia with , most probably due to idiopathic thrombocytopenic purpura given thrombocytopenia occurs during her late first trimester or the beginning of the second trimester. Platelet-associated antibodies were strongly positive for platelet antibodies, direct IgG. Vitamin B12, folate, red cell folate, methylmalonic acid assay all came within the normal range. Her platelet count currently is 185,000, up from 168,000 her last visit. No hematological intervention is required at the moment. I am planning to see her in a year with CBC, and I advised her to report to the office for CBC checkup if she has excessive bruising or clinical bleeding. PLAN 1. Continue followup. 2. Patient to return in one year with CBC. 3. The patient to contact us for any new concerns or complaints. JANNA
== END 2018-08-01 08:19 | disposition home or self-care (01) ==
LOC: SPU 09:00
PROVIDERS: ATTEND Internal Medicine Hematology
DX: D69.6 Thrombocytopenia, unspecified (principal); R53.1 Weakness; R53.83 Other fatigue; Z87.891 Personal history of nicotine dependence
CPT/HCPCS: 36415; 85025; G0463; 99212